=== PATIENT | female | born 1955 | race Caucasian/White ===

== ENCOUNTER 2017-06-04 04:02 | Day surgery (SDC) | payer OTHER ==
[~2017-06-04 04:02] MED LIST: ALBU90OI61 INH; FLUSAL2505 INH; TRAM50 PO
== END 2017-06-04 23:08 | disposition home or self-care (01) ==
LOC: MOI US 04:02
PROC: 0HBU3ZX Excision of Left Breast, Percutaneous Approach, Diagnostic (ICD-10-PCS; principal; 2017-06-04)
DX: C50.912 Malignant neoplasm of unspecified site of left female breast (principal)
CPT/HCPCS: 19083; 77065; 88305; 88360; A4648

== ENCOUNTER 2017-06-29 10:05 | Day surgery (SDC) | payer OTHER ==
[2017-06-28 10:38] LABS: BASOPHILS ABSOLUTE AUTO 0.02 K/mm3 (0.00-0.23); BASOPHILS PERCENT AUTO 0 % (0-2); EOSINOPHILS ABSOLUTE AUTO 0.15 K/mm3 (0.00-0.68); EOSINOPHILS PERCENT AUTO 2 % (0-6); Hematocrit 48.2 % (33.0-51.0); Hemoglobin 15.4 g/dL (11.5-16.0); IMMATURE GRAN ABSOLUTE AUTO 0.01 K/mm3 (0.00-0.10); IMMATURE GRAN PERCENT AUTO 0 % (0-1); LYMPHOCYTES ABSOLUTE AUTO 2.62 K/mm3 (0.84-5.20); LYMPHOCYTES PERCENT AUTO 43 % (21-46); MONOCYTES ABSOLUTE AUTO 0.38 K/mm3 (0.16-1.47); MONOCYTES PERCENT AUTO 6 % (4-13); Mean Corpuscular HGB 28.2 pg (26.0-34.0); Mean Corpuscular Volume 88 fL (80-100); Mean Platelet Volume 10.8 fL (9.1-12.4); NEUTROPHILS ABSOLUTE AUTO 2.95 K/mm3 (1.96-9.15); NEUTROPHILS PERCENT AUTO 48 % (41-73); Platelet Count 228 K/mm3 (150-400); RDW Coefficient Variation 14.4 % (11.7-14.2); RDW Standard Deviation 46.5 fL (35.1-46.3); Red Blood Cell Count 5.47 M/mm3 (3.80-5.20); White Blood Cell Count 6.13 K/mm3 (4.00-11.30)
[2017-06-28 11:14] LABS: Anion Gap 8 mmol/L (6-16); Blood Urea Nitrogen 9 mg/dL (8-24); Bun/Creatinine Ratio 15.6 (12.0-20.0); CO2, Blood 26 mmol/L (21-32); Calcium, Blood 9.2 mg/dL (8.5-10.1); Chloride, Blood 106 mmol/L (98-108); Creatinine, Blood 0.58 mg/dL (0.40-1.00); Glomerular Filtration Rate >60 (60-); Glucose, Blood 121 mg/dL (70-99); Potassium, Blood 4.2 mmol/L (3.5-5.5); Sodium, Blood 140 mmol/L (136-145)
[~2017-06-29] VITALS: Ht 162.6 cm; Wt 100.2 kg
[~2017-06-29 10:05] MED LIST changes: +Advil200 M1 PO; +DULERA 200 MCG/13 GM INH
== END 2017-06-29 14:13 | disposition home or self-care (01) ==
LOC: ORSCMMR 10:05 → ORD 12:15 → ORSCMMR 12:15
PROVIDERS: Surgery
PROC: 02HV33Z Insertion of Infusion Device into Superior Vena Cava, Percutaneous Approach (ICD-10-PCS; principal; 2017-06-29 12:15)
PROC: B5181ZA Fluoroscopy of Superior Vena Cava using Low Osmolar Contrast, Guidance (ICD-10-PCS; principal; 2017-06-29 12:15)
DX: C50.412 Malignant neoplasm of upper-outer quadrant of left female breast (principal); E11.9 Type 2 diabetes mellitus without complications; J45.909 Unspecified asthma, uncomplicated; F17.210 Nicotine dependence, cigarettes, uncomplicated; Z79.899 Other long term (current) drug therapy; E66.01 Morbid (severe) obesity due to excess calories; Z68.37 Body mass index [BMI] 37.0-37.9, adult
CPT/HCPCS: 36415; 77001; 80048; 82947; 85025; 93005; 93010; C1769; C1788; J0690; J1642; J2250; J3010; J7120

== ENCOUNTER 2018-05-30 16:17 | Inpatient (IN) | payer OTHER ==
[~2018-05-30] VITALS: Ht 162.6 cm; Wt 101.6 kg
[~2018-05-30 16:17] MED LIST changes: +HYDR1TAB94 PO; +OXYC5 PO
[2018-05-30 17:23] LABS: BASOPHILS PERCENT AUTO 0 % (0-2); EOSINOPHILS PERCENT AUTO 0 % (0-6); Hematocrit 37.9 % (33.0-51.0); Hemoglobin 12.3 g/dL (11.5-16.0); IMMATURE GRAN ABSOLUTE AUTO 0.01 K/mm3 (0.00-0.10); IMMATURE GRAN PERCENT AUTO 0 % (0-1); LYMPHOCYTES PERCENT AUTO 19 % (21-46); MONOCYTES ABSOLUTE AUTO 0.21 K/mm3 (0.16-1.47); MONOCYTES PERCENT AUTO 7 % (4-13); Mean Corpuscular HGB 32.4 pg (26.0-34.0); Mean Corpuscular HGB Conc 32.5 g/dL (31.5-36.5); Mean Corpuscular Volume 100 fL (80-100); Mean Platelet Volume 10.1 fL (9.1-12.4); NEUTROPHILS ABSOLUTE AUTO 2.28 K/mm3 (1.96-9.15); NEUTROPHILS PERCENT AUTO 74 % (41-73); Platelet Count 148 K/mm3 (150-400); RDW Coefficient Variation 19.3 % (11.7-14.2); RDW Standard Deviation 68.5 fL (35.1-46.3)
[2018-05-30 17:47] LABS: Alanine Aminotransfer (ALT/SGP 23 U/L (12-78); Albumin/Globulin Ratio 0.9 (0.8-1.8); Alk Phos 82 U/L (50-136); Anion Gap 9 mmol/L (6-16); Aspartate Aminotrans (AST/SGOT 13 U/L (12-37); Bilirubin, Total 0.4 mg/dL (0.1-1.0); Blood Urea Nitrogen 12 mg/dL (8-24); Bun/Creatinine Ratio 28.2 (12.0-20.0); CO2, Blood 26 mmol/L (21-32); Calcium, Blood 9.9 mg/dL (8.5-10.1); Chloride, Blood 102 mmol/L (98-108); Creatinine, Blood 0.43 mg/dL (0.40-1.00); Globulin, Blood 4.4 g/dL (2.2-4.0); Glomerular Filtration Rate >60 (60-); Glucose, Blood 224 mg/dL (70-99); Potassium, Blood 3.8 mmol/L (3.5-5.5); Sodium, Blood 137 mmol/L (136-145); Total Protein, Blood 8.4 g/dL (6.4-8.2)
[2018-05-30 20:35] LABS: Source, Urine Clean Catch
[2018-05-30 20:38] LABS: Bilirubin, Urine Neg (Neg); Blood, Urine Neg (Neg); Glucose Qualitative, Urine 3+ (Neg); Ketones, Urine 3+ (Neg); Leukocyte Esterase, Urine 1+ (Neg); Nitrite, Urine Neg (Neg); Protein, Urine 2+ (Neg); Specific Gravity, Urine 1.025 (1.003-1.022); Urobilinogen, Urine NORM (Normal)
[2018-05-30 20:44] LABS: Appearance, Urine Cloudy (Clear); Color, Urine Yellow (P-Yellow)
[2018-05-30 20:45] LABS: Squamous Epithelial Cells Mod /hpf (Few)
[2018-05-30 20:46] LABS: Bacteria Few /hpf; Mucus Mod (0-Heavy); Red Blood Cells, Urine Not Seen /hpf (0-2); White Blood Cells, Urine 0-2 /hpf (0-5)
--- NOTE | 2018-05-30 23:59 | NUR ---
PT ARRIVED TO UNIT AT APPROX [address] MIDDLETON CONSULTED. NG TUBE CLAMPED UPON ARRIVAL. PT REQUESTING A WHEELCHAIR TO GO OUTSIDE AND SMOKE. PT APPEARS ANXIOUS AND REPORTS FEELING FRUSTURATED. EDUCATED ON THE EFFECTS OF SMOKING WITH SBO AND DX OF ASTHMA. PT UNRECEPTIVE AND NON-COMPLIENT. REQUESTING ALBUTEROL TX BEFORE GOING OUTSIDE TO SMOKE. RT NOTIFIED. PT REPORTS FEELING INPATIENT AND "NEEDS TO GO NOW". LEFT BEFORE RECIEVING TX. PT GIVEN UNIT PHONE NUMBER AND INSTRUCTED TO CALL IF NEEDED.
--- NOTE | 2018-05-31 | NUR ---
PATIENT TOOK HERSELF OUTSIDE IN WHEELCHAIR.
[2018-05-31 04:35] LABS: Hematocrit 33.6 % (33.0-51.0); Hemoglobin 10.6 g/dL (11.5-16.0); Mean Corpuscular HGB 32.5 pg (26.0-34.0); Mean Corpuscular HGB Conc 31.5 g/dL (31.5-36.5); Mean Platelet Volume 9.4 fL (9.1-12.4); NRBC ABSOLUTE 0.02 K/mm3 (0.00-0.02); NRBC Auto 0.6 /100 WBC (0.0-0.2); Platelet Count 128 K/mm3 (150-400); RDW Coefficient Variation 19.6 % (11.7-14.2); RDW Standard Deviation 73.3 fL (35.1-46.3); Red Blood Cell Count 3.26 M/mm3 (3.80-5.20); White Blood Cell Count 3.48 K/mm3 (4.00-11.30)
[2018-05-31 04:42] LABS: Mean Corpuscular Volume 103 fL (80-100)
[2018-05-31 05:06] LABS: Anion Gap 9 mmol/L (6-16); Blood Urea Nitrogen 14 mg/dL (8-24); CO2, Blood 26 mmol/L (21-32); Calcium, Blood 8.7 mg/dL (8.5-10.1); Chloride, Blood 107 mmol/L (98-108); Creatinine, Blood 0.52 mg/dL (0.40-1.00); Glomerular Filtration Rate >60 (60-); Glucose, Blood 176 mg/dL (70-99); Potassium, Blood 3.5 mmol/L (3.5-5.5); Sodium, Blood 142 mmol/L (136-145)
--- NOTE | 2018-05-31 10:10 | NUR ---
SHIFT ASSESSMENT SHIFT ASSESSMENT UNDONE CHARTED ON INCORRECT PATIENT
--- NOTE | 2018-05-31 11:15 | NUR ---
smoke patient requests iv and ng be unhooked so she can go out to smoke . reminded patient that Dr Wasserman had conversation with her this morning regarding she should hnot be smoking. patient tells me she hasnt smoked in over 24 hours and her mother is going to wheel her out to smoke via wheelchair. patient unhooked as per her request
--- NOTE | 2018-05-31 11:45 | NUR ---
biox biox 86% when patient returned from smoking. instructed patient in tcdb and biox increased to 91%. oxygen placed at 2 liters
--- NOTE | 2018-05-31 17:42 | NUR ---
SUMMARY PATIENT SLEEPING AFTER MEDICATED FOR HEADACHE. PAIN 2/10 AT THIS TIME. MEDICATED X1 FOR NAUSEA. PATIENT STATES SHE DOES FEEL SOME "RUMBLINGS IN ABDOMEN.
--- NOTE | 2018-05-31 18:07 | NUR ---
out to smoke patient requests IV and NG be unhooked so she can go outside to smoke. patient reminded of physician instructions that she not smoke. patient wheeled self out of room in wheelchair stating she has done well and only smoked once today
--- NOTE | 2018-05-31 18:31 | NUR ---
returned to room
--- NOTE | 2018-06-01 06:43 | NUR ---
SUMMARY PT CONT WITH NO FLATUS. NG CONT WITH OUTPUT. HOWEVER, STARTED PT ON REGLAN DURING NIGHT WITH PT VERB IMPROVEMENT IN NAUSEA NAD FEELING IF INTESTINES MAY BECOME MORE ACTIVE. VERB DILAUDID EFFECTIVE FOR PAIN.
--- NOTE | 2018-06-01 07:37 | NUR ---
reglan 5 mg ivp given pt sitting up on edge of the bed pt stated at this time pain is ok had pain meds earlier but without she has abd cramping ngt to low int sx with green drainage pt having small amts manolo ice chips still having nausea bt's hypo x4 no flatus
[2018-06-01 10:33] LABS: BASOPHILS PERCENT AUTO 0 % (0-2); EOSINOPHILS PERCENT AUTO 0 % (0-6); Hematocrit 30.1 % (33.0-51.0); Hemoglobin 9.5 g/dL (11.5-16.0); IMMATURE GRAN ABSOLUTE AUTO 0.01 K/mm3 (0.00-0.10); IMMATURE GRAN PERCENT AUTO 0 % (0-1); LYMPHOCYTES ABSOLUTE AUTO 0.75 K/mm3 (0.84-5.20); LYMPHOCYTES PERCENT AUTO 24 % (21-46); MONOCYTES ABSOLUTE AUTO 0.37 K/mm3 (0.16-1.47); MONOCYTES PERCENT AUTO 12 % (4-13); Mean Corpuscular HGB 32.8 pg (26.0-34.0); Mean Corpuscular HGB Conc 31.6 g/dL (31.5-36.5); Mean Corpuscular Volume 104 fL (80-100); Mean Platelet Volume 9.7 fL (9.1-12.4); NEUTROPHILS ABSOLUTE AUTO 2.03 K/mm3 (1.96-9.15); NEUTROPHILS PERCENT AUTO 64 % (41-73); Platelet Count 93 K/mm3 (150-400); RDW Coefficient Variation 19.5 % (11.7-14.2); White Blood Cell Count 3.16 K/mm3 (4.00-11.30)
[2018-06-01 10:40] LABS: Anion Gap 5 mmol/L (6-16); Blood Urea Nitrogen 10 mg/dL (8-24); CO2, Blood 33 mmol/L (21-32); Calcium, Blood 8.2 mg/dL (8.5-10.1); Chloride, Blood 108 mmol/L (98-108); Creatinine, Blood 0.42 mg/dL (0.40-1.00); Glomerular Filtration Rate >60 (60-); Glucose, Blood 153 mg/dL (70-99); Potassium, Blood 3.3 mmol/L (3.5-5.5); Sodium, Blood 146 mmol/L (136-145)
--- NOTE | 2018-06-01 12:06 | NUR ---
NEW NGT CANNISTER PLACED 500 ML DRAINAGE PT HAD 2 CUPS OF ICE CHIPS PT WANTING TO BE UNHOOKED TO GO OUT AND SMOKE WITH HER
--- NOTE | 2018-06-01 14:02 | NUR ---
PT VISITING WITH LABS BACK IV K LOW K RIDER INFUSING
[2018-06-02 04:29] LABS: Anion Gap 6 mmol/L (6-16); Blood Urea Nitrogen 12 mg/dL (8-24); Bun/Creatinine Ratio 27.7 (12.0-20.0); CO2, Blood 33 mmol/L (21-32); Calcium, Blood 8.3 mg/dL (8.5-10.1); Chloride, Blood 108 mmol/L (98-108); Creatinine, Blood 0.43 mg/dL (0.40-1.00); Glomerular Filtration Rate >60 (60-); Glucose, Blood 158 mg/dL (70-99); Potassium, Blood 3.5 mmol/L (3.5-5.5); Sodium, Blood 147 mmol/L (136-145)
--- NOTE | 2018-06-02 06:26 | NUR ---
SUMMARRY PT CONT WITH NG TO DRAIN. TAKING FEEW ICE CHIPS. NO FLATUS YET. URINE DK. WILL ASK DAY RN TO FOLLOW UP REGARDING IV FLUIDS PT SLIGHTLY HIGH ON AM SODIUM LEVEL.ALSO,CO2 LEVEL SLIGHTLY ABOVE RANGE.PT WITH HX ASTHMA AND COPD BUT DENIES HOME O2 USE AT THIS TIME.I TURNED O2 DOWN TO 1 L N/C WILL MONITOR.
--- NOTE | 2018-06-02 07:20 | NUR ---
PT WAKES TO VERBAL STIMULI PT HAS INCREASED BT'S X3 NGT TO LOW SX STILL HAVING NAUSEA INT TAKING ICE CHIPS NO FLATUS STILL HAVING ABD CRAMPS
--- NOTE | 2018-06-02 11:45 | NUR ---
pt had open spot to l pannus with redness asked pt if she gets yeast infections stated she does will call for nystatin powder
--- NOTE | 2018-06-02 16:05 | NUR ---
PT STATED EARLIER SHE FELT LIKE SHE HAD SOME PRESSURE BUT NO FLATUS AMB FOR 30 MIN IN HALLWAY WITH HER SPOUSE
--- NOTE | 2018-06-02 17:11 | NUR ---
PT PASSED FLATUS X 2 PT WANTING TO GO OUTSIDE TO SMOKE
--- NOTE | 2018-06-02 19:00 | NUR ---
pt had another flatus called dr jo pt asked if she could have cl diet will clamp ngt for 4 hr and be npo if pt has nausea hook to sx then back to sx for hr and allow ice chips and sips if pt armando t/o the night plan for poss removal of ngt
[2018-06-03 04:15] LABS: BASOPHILS PERCENT AUTO 0 % (0-2); EOSINOPHILS PERCENT AUTO 0 % (0-6); Hemoglobin 8.7 g/dL (11.5-16.0); IMMATURE GRAN ABSOLUTE AUTO 0.02 K/mm3 (0.00-0.10); IMMATURE GRAN PERCENT AUTO 1 % (0-1); LYMPHOCYTES PERCENT AUTO 28 % (21-46); MONOCYTES ABSOLUTE AUTO 0.27 K/mm3 (0.16-1.47); MONOCYTES PERCENT AUTO 9 % (4-13); Mean Corpuscular HGB 33.5 pg (26.0-34.0); Mean Corpuscular HGB Conc 31.1 g/dL (31.5-36.5); Mean Platelet Volume 10.1 fL (9.1-12.4); NEUTROPHILS PERCENT AUTO 62 % (41-73); Platelet Count 69 K/mm3 (150-400); RDW Coefficient Variation 19.3 % (11.7-14.2); RDW Standard Deviation 75.7 fL (35.1-46.3); White Blood Cell Count 2.89 K/mm3 (4.00-11.30)
[2018-06-03 04:23] LABS: Mean Corpuscular Volume 108 fL (80-100)
[2018-06-03 04:38] LABS: Alanine Aminotransfer (ALT/SGP 67 U/L (12-78); Alk Phos 61 U/L (50-136); Anion Gap 6 mmol/L (6-16); Aspartate Aminotrans (AST/SGOT 48 U/L (12-37); Bilirubin, Total 0.4 mg/dL (0.1-1.0); Blood Urea Nitrogen 17 mg/dL (8-24); Bun/Creatinine Ratio 36.9 (12.0-20.0); CO2, Blood 35 mmol/L (21-32); Calcium, Blood 8.2 mg/dL (8.5-10.1); Chloride, Blood 110 mmol/L (98-108); Creatinine, Blood 0.46 mg/dL (0.40-1.00); Globulin, Blood 3.1 g/dL (2.2-4.0); Glomerular Filtration Rate >60 (60-); Glucose, Blood 134 mg/dL (70-99); Magnesium, Blood 2.4 mg/dL (1.6-2.4); Potassium, Blood 2.9 mmol/L (3.5-5.5); Sodium, Blood 151 mmol/L (136-145); Total Protein, Blood 6.1 g/dL (6.4-8.2)
--- NOTE | 2018-06-03 06:40 | NUR ---
PT VSS T/O NIGHT. PT MED FOR PAIN X2 W/REP RELIEF. PT DENIED NAUSEA, IS PASSING SMALL AMT FLATUS. ABD SOFT, BT PRESENT. NGT ALT CLAMPED FOR 4 HOURS W/1 HOUR OF LIS. TUBE DRAINED APPX 400ML BROWN FLUID. PT NPO X FEW ICE CHIPS, IVF CONT PER ORDERS. PT AMB INEP OUTSIDE, PEGGY WELL. WILL CONT TO MONITOR UNTIL REP GIVEN TO ONCOMING RN.
--- NOTE | 2018-06-03 12:05 | NUR ---
NG TUBE REMOVED AT THIS TIME PER DR JUAREZ VERBAL ORDER. PT STARTED ON SIPS OF CLEAR LIQUIDS.
--- NOTE | 2018-06-03 18:18 | NUR ---
SHIFT SUMMARY PT HAS DONE WELL THIS SHIFT. NG TUBE REMOVED AND PATIENT STARTED ON CLEAR LIQUIDS-NO NAUSEA. UP AND AMBULATING IN HALLWAY AND OUTSIDE TO SMOKE MULTIPLE TIMES T/O SHIFT.
--- NOTE | 2018-06-04 04:42 | NUR ---
SHIFT SUMMARY PT A&O X4 T/O SHIFT. NO ACUTE CHANGES. ABD SOFT; BT X4; PT PASSING STOOL. PT DENIES NAUSEA, PAIN, CP AND SOB T/O SHIFT. LS SLIGHTLY DIM IN BILAT BASES; RA. PT OFF UNIT X1. INDEPENDENT IN ROOM. CALL LIGHT IN REACH; PT DEMONSTRATES USE. WCTM UNTIL REPORT TO DAY SHIFT RN.
--- NOTE | 2018-06-04 14:00 | NUR ---
DISCHARGE PT DISCHARGED HOME FROM UNIT AT APROX 1345. PT GIVEN WRITTEN AND VERBAL DISCHARGE INSTRUCTIONS AND VERBALIZED UNDERSTANDING OF THESE INSTRUCTIONS. IV REMOVED. WHEELCHAIR TO CAR.
== END 2018-06-04 13:30 | disposition home or self-care (01) | DRG 394 ==
LOC: ER 16:17 → SURS 20:21
PROVIDERS: Emergency Medicine; Internal Medicine; Nurse Practitioner Acute Care; Surgery; ADMIT Internal Medicine
PROC: 0D9670Z Drainage of Stomach with Drainage Device, Via Natural or Artificial Opening (ICD-10-PCS; principal; 2018-05-30)
DX: K43.6 Other and unspecified ventral hernia with obstruction, without gangrene (principal); N39.0 Urinary tract infection, site not specified; C50.912 Malignant neoplasm of unspecified site of left female breast; E11.9 Type 2 diabetes mellitus without complications; J44.9 Chronic obstructive pulmonary disease, unspecified; F17.200 Nicotine dependence, unspecified, uncomplicated; Z88.8 Allergy status to other drugs, medicaments and biological substances; Z92.21 Personal history of antineoplastic chemotherapy
CPT/HCPCS: 36415; 74176; 80048; 80053; 81001; 82947; 83605; 83690; 83735; 85025; 85027; 87077; 87086; 87186; 94640; 94760; 96361; 96374; 96375; 96376; 99285-25; J0696; J1170; J2405; J2765; J3010; J3480; J7030; J7120

== ENCOUNTER → 2018-12-20 | Outpatient (CLI) | payer OTHER ==
[2018-12-20 19:24] LABS: BASOPHILS ABSOLUTE AUTO 0.01 K/mm3 (0.00-0.23); BASOPHILS PERCENT AUTO 0 % (0-2); EOSINOPHILS ABSOLUTE AUTO 0.11 K/mm3 (0.00-0.68); EOSINOPHILS PERCENT AUTO 2 % (0-6); Hematocrit 46.5 % (33.0-51.0); Hemoglobin 14.6 g/dL (11.5-16.0); IMMATURE GRAN ABSOLUTE AUTO 0.02 K/mm3 (0.00-0.10); IMMATURE GRAN PERCENT AUTO 0 % (0-1); LYMPHOCYTES ABSOLUTE AUTO 1.99 K/mm3 (0.84-5.20); LYMPHOCYTES PERCENT AUTO 30 % (21-46); MONOCYTES ABSOLUTE AUTO 0.33 K/mm3 (0.16-1.47); MONOCYTES PERCENT AUTO 5 % (4-13); Mean Corpuscular HGB 29.7 pg (26.0-34.0); Mean Corpuscular HGB Conc 31.4 g/dL (31.5-36.5); Mean Corpuscular Volume 95 fL (80-100); Mean Platelet Volume 10.9 fL (9.1-12.4); NEUTROPHILS ABSOLUTE AUTO 4.15 K/mm3 (1.96-9.15); NEUTROPHILS PERCENT AUTO 63 % (41-73); Platelet Count 205 K/mm3 (150-400); RDW Coefficient Variation 14.2 % (11.7-14.2); RDW Standard Deviation 49.2 fL (35.1-46.3); Red Blood Cell Count 4.92 M/mm3 (3.80-5.20); White Blood Cell Count 6.61 K/mm3 (4.00-11.30)
[2018-12-20 19:41] LABS: Alanine Aminotransfer (ALT/SGP 26 U/L (12-78); Albumin, Blood 3.8 g/dL (3.4-5.0); Albumin/Globulin Ratio 0.9 (0.8-1.8); Alk Phos 93 U/L (50-136); Anion Gap 4 mmol/L (6-16); Aspartate Aminotrans (AST/SGOT 16 U/L (12-37); Bilirubin, Total 0.2 mg/dL (0.1-1.0); Blood Urea Nitrogen 10 mg/dL (8-24); CHOL/HDL RATIO 5.3; CO2, Blood 28 mmol/L (21-32); Calcium, Blood 9.4 mg/dL (8.5-10.1); Chloride, Blood 104 mmol/L (98-108); Cholesterol 219 mg/dL (50-200); Globulin, Blood 4.4 g/dL (2.2-4.0); Glucose, Blood 123 mg/dL (70-99); HDL Cholesterol 41 mg/dL (>39); LDL/HDL RATIO 3.6; Low Density Lipoprotein Chol 146 mg/dL (0-110); Potassium, Blood 4.3 mmol/L (3.5-5.5); Sodium, Blood 136 mmol/L (136-145); Total Protein, Blood 8.2 g/dL (6.4-8.2); Triglycerides 160 mg/dL (30-160); Very Low Density Lipoprot Chol 32 mg/dL (6-32)
[2018-12-20 19:45] LABS: Creatinine, Blood 0.53 mg/dL (0.40-1.00); Glomerular Filtration Rate >60 (60-)
[2018-12-20 19:55] LABS: Microalb/Creat Ratio UR, Rand Unable to Calculate mg/g (0.000-30.000); Microalbumin, Random Urine <5.000 mg/L (0.000-20.000)
== END ==
LOC: LAB 10:25 → LAB SHORT 10:25 → EDSTATUS 12-21 12:40 → LAB FUT 12-21 12:40
PROVIDERS: Family Medicine
DX: E11.9 Type 2 diabetes mellitus without complications (principal)
CPT/HCPCS: 80053; 80061; 82043; 82570; 83036; 84443; 85025

== ENCOUNTER 2020-03-12 23:13 | Inpatient (IN) | payer OTHER ==
[~2020-03-12] VITALS: Ht 162.6 cm; Wt 93.9 kg
[2020-03-12] MEDS ORDERED: MIRALAX17 GM (23:20)
[2020-03-12] MEDS ORDERED: BISA10S PR (23:20)
[2020-03-12 23:43] LABS: BASOPHILS ABSOLUTE AUTO 0.02 K/mm3 (0.00-0.23); BASOPHILS PERCENT AUTO 0 % (0-2); EOSINOPHILS ABSOLUTE AUTO 0.02 K/mm3 (0.00-0.68); EOSINOPHILS PERCENT AUTO 0 % (0-6); Hematocrit 45.9 % (33.0-51.0); Hemoglobin 14.8 g/dL (11.5-16.0); IMMATURE GRAN ABSOLUTE AUTO 0.06 K/mm3 (0.00-0.10); IMMATURE GRAN PERCENT AUTO 1 % (0-1); LYMPHOCYTES ABSOLUTE AUTO 1.87 K/mm3 (0.84-5.20); LYMPHOCYTES PERCENT AUTO 20 % (21-46); MONOCYTES ABSOLUTE AUTO 0.48 K/mm3 (0.16-1.47); MONOCYTES PERCENT AUTO 5 % (4-13); Mean Corpuscular HGB 29.2 pg (26.0-34.0); Mean Corpuscular HGB Conc 32.2 g/dL (31.5-36.5); Mean Corpuscular Volume 91 fL (80-100); Mean Platelet Volume 9.5 fL (9.1-12.4); NEUTROPHILS PERCENT AUTO 74 % (41-73); Platelet Count 252 K/mm3 (150-400); RDW Coefficient Variation 13.2 % (11.7-14.2); RDW Standard Deviation 44.3 fL (35.1-46.3); Red Blood Cell Count 5.07 M/mm3 (3.80-5.20); White Blood Cell Count 9.55 K/mm3 (4.00-11.30)
[2020-03-13 00:01] LABS: Alanine Aminotransfer (ALT/SGP 19 U/L (12-78); Albumin, Blood 3.5 g/dL (3.4-5.0); Albumin/Globulin Ratio 0.9 (0.8-1.8); Alk Phos 84 U/L (50-136); Anion Gap 9 mmol/L (6-16); Aspartate Aminotrans (AST/SGOT 14 U/L (12-37); Bilirubin, Total 0.4 mg/dL (0.1-1.0); Blood Urea Nitrogen 12 mg/dL (8-24); Bun/Creatinine Ratio 20.7 (12.0-20.0); CO2, Blood 26 mmol/L (21-32); Calcium, Blood 8.8 mg/dL (8.5-10.1); Chloride, Blood 99 mmol/L (98-108); Creatinine, Blood 0.58 mg/dL (0.40-1.00); Globulin, Blood 4.1 g/dL (2.2-4.0); Glomerular Filtration Rate >60 (60-); Glucose, Blood 169 mg/dL (70-99); Potassium, Blood 3.8 mmol/L (3.5-5.5); Sodium, Blood 134 mmol/L (136-145); Total Protein, Blood 7.6 g/dL (6.4-8.2)
[2020-03-13 01:43] LABS: Source, Urine Clean Catch
[2020-03-13 01:46] LABS: Bilirubin, Urine Neg (Neg); Blood, Urine Neg (Neg); Glucose Qualitative, Urine Neg (Neg); Ketones, Urine 3+ (Neg); Leukocyte Esterase, Urine Neg (Neg); Nitrite, Urine Neg (Neg); Protein, Urine 1+ (Neg); Specific Gravity, Urine 1.015 (1.003-1.022); Urobilinogen, Urine 1+ (Normal)
[2020-03-13 01:51] LABS: Appearance, Urine Clear (Clear); Color, Urine Yellow (P-Yellow)
--- NOTE | 2020-03-13 05:13 | NUR ---
PATIENT ARRIVED AT 0235 FROM THE ER WITH O2 @2 L NC, WITH PRONGS IN MOUTH DUE TO NG TUBE IN PLACE. PATIENT ABLE TO AMBULATE AND TRANSFER SELF TO BED THEN TO RECLINER WITH SBA. SHE HAS MILD-MODERATE PAIN IN HER ABDOMEN IN AN AREA THAT SHE STATES IS WHERE HER LARGE HERNIA (PRIOR OR REPAIR) IS LOCATED RT LOWER QUADRANT. 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 DENIES NAUSEA SINCE THE NG WAS PLACED AND DECOMRESSED IN THE ER. NG IS NOW TO LIS WITH BROWN FLUID DRAINING. ABSENT BOWEL TONES. LAST STOOL WAS ON 03/10/20 AND WAS STATED TO BE SMALL. PATIENT WAS INFORMED THAT THE CAMPUS IS A NON SMOKING CAMPUS AND SHE STATED THAT SHE MAY HAVE TO WALK TO THE CORNER ON THE MAIN STREET TO SMOKE. PATIENT IS NOW IN BED RESTING QUIETLY. CALL LIGHT IN REACH.
--- NOTE | 2020-03-13 07:37 | NUR ---
ASSESSMENT PT SITTING UP IN CHAIR, C/O ABD PAIN, MAINLY LOCATED ON L SIDE, MEDICATED WITH DILAUDID PER EMAR. PT O2 SAT 94% ON 2L NC, DOES NOT WEAR O2 AT BASELINE, LUNGS DIM IN BASES. NG TUBE PATENT, SMALL AMT BROWN LIQUID PRESENT IN CANISTER. PT IS CONTINUING TO REFUSE TELEMETRY, WILL NOTIFY
[2020-03-13 08:49] LABS: BASOPHILS ABSOLUTE AUTO 0.01 K/mm3 (0.00-0.23); BASOPHILS PERCENT AUTO 0 % (0-2); EOSINOPHILS ABSOLUTE AUTO 0.07 K/mm3 (0.00-0.68); EOSINOPHILS PERCENT AUTO 1 % (0-6); Hemoglobin 13.2 g/dL (11.5-16.0); IMMATURE GRAN ABSOLUTE AUTO 0.02 K/mm3 (0.00-0.10); IMMATURE GRAN PERCENT AUTO 0 % (0-1); LYMPHOCYTES ABSOLUTE AUTO 2.04 K/mm3 (0.84-5.20); LYMPHOCYTES PERCENT AUTO 34 % (21-46); MONOCYTES ABSOLUTE AUTO 0.42 K/mm3 (0.16-1.47); MONOCYTES PERCENT AUTO 7 % (4-13); Mean Corpuscular HGB 29.9 pg (26.0-34.0); Mean Corpuscular HGB Conc 32.2 g/dL (31.5-36.5); Mean Corpuscular Volume 93 fL (80-100); Mean Platelet Volume 9.6 fL (9.1-12.4); NEUTROPHILS PERCENT AUTO 58 % (41-73); Platelet Count 190 K/mm3 (150-400); RDW Coefficient Variation 13.2 % (11.7-14.2); RDW Standard Deviation 45.1 fL (35.1-46.3); Red Blood Cell Count 4.42 M/mm3 (3.80-5.20); White Blood Cell Count 6.06 K/mm3 (4.00-11.30)
[2020-03-13 09:22] LABS: Alanine Aminotransfer (ALT/SGP 36 U/L (12-78); Albumin/Globulin Ratio 0.9 (0.8-1.8); Alk Phos 83 U/L (50-136); Anion Gap 6 mmol/L (6-16); Aspartate Aminotrans (AST/SGOT 37 U/L (12-37); Bilirubin, Total 0.4 mg/dL (0.1-1.0); Blood Urea Nitrogen 12 mg/dL (8-24); Bun/Creatinine Ratio 20.9 (12.0-20.0); CO2, Blood 27 mmol/L (21-32); Chloride, Blood 103 mmol/L (98-108); Creatinine, Blood 0.57 mg/dL (0.40-1.00); Globulin, Blood 3.2 g/dL (2.2-4.0); Glomerular Filtration Rate >60 (60-); Glucose, Blood 105 mg/dL (70-99); Potassium, Blood 3.5 mmol/L (3.5-5.5); Sodium, Blood 136 mmol/L (136-145); Total Protein, Blood 6.2 g/dL (6.4-8.2)
--- NOTE | 2020-03-13 21:55 | NUR ---
PATIENT IS CURRENTLY UP IN HER RECLINER. COMPLAINS OF PAIN, DILADID GIVEN WITH GOOD RELIEF. NG TUBE TO LIS WITH BROWN FLUID IN TUBING. DENIES NAUSEA. PATIENT HAS HAD SEVERAL BMS TODAY AND ON THIS SHIFT. STATES SOME RELIEF TO ABDOMINAL DISCOMFORT. CALL LIGHT IN REACH.
--- NOTE | 2020-03-14 04:41 | NUR ---
PATIENT SLEPT ONCE SHE WAS IN BED AT APPROX 2100. SHE WOKE TO THE NEED TO VOID AND HAVE A LARGE BM. NG IS DRAINING A GREENISH BROWN FLUID. NG OUTPUT FOR THIS SHIFT WAS 200CC. ABDOMEN IS STILL FIRM IN THE AREA OF THE HERNIA. NO ACUTE CHANGES, CALL LIGHT IN REACH.
--- NOTE | 2020-03-14 07:54 | NUR ---
ASSESSMENT PT UP AMBULATING IN HALLWAYS, REPORTS 2 LARGE BM. NG TUBE CLAMPED AT THIS TIME FOR APROX 1HR DUE TO AMBULATING, PT DENIES ANY N/V. DENIES PAIN AT THIS TIME OTHER THAN SOME "CRAMPING". LUNG SOUNDS CLEAR T/O IMPROVED SINCE YESTERDAY, O2 SAT 94% ON RA. REDNESS IN PANNUS IMPROVED, PT REPORTS ITCHING IN AREA DECREASED WELL. PT UP TO SHOWER AT THIS TIME.
[2020-03-14] MEDS ORDERED: MICO100S TOP (12:36)
--- NOTE | 2020-03-14 15:27 | NUR ---
DISCHARGE PT DISCHARGED HOME FROM UNIT APROX 1500. PT GIVEN WRITTEN AND VERBAL DISCHARGE INSTRUCTIONS AND VERBALIZED UNDERSTANDING. IV REMOVED. DECLINED WHEELCHAIR TO CAR.
== END 2020-03-14 15:32 | disposition home or self-care (01) | DRG 394 ==
LOC: ER 23:13 → SURS 03-13 01:19
PROVIDERS: Emergency Medicine; ADMIT Internal Medicine
DX: K43.6 Other and unspecified ventral hernia with obstruction, without gangrene (principal); E87.1 Hypo-osmolality and hyponatremia; E11.9 Type 2 diabetes mellitus without complications; Z85.3 Personal history of malignant neoplasm of breast; Z92.21 Personal history of antineoplastic chemotherapy; F17.210 Nicotine dependence, cigarettes, uncomplicated; J44.9 Chronic obstructive pulmonary disease, unspecified
CPT/HCPCS: 36415; 74176; 80053; 83036; 83605; 83690; 85025; 93005; 93010; 94640; 94760; 96361; 96374; 96375; 99285-25; A9270; J1170; J1650; J2270; J2405; J7030

== ENCOUNTER 2021-12-12 16:13 | Emergency (ER) | payer OTHER ==
[~2021-12-12] VITALS: Ht 162.6 cm; Wt 92.5 kg
[~2021-12-12 16:13] MED LIST changes: +BISA10S PR; +MICO100S TOP; +MIRALAX17 GM
[2021-12-12 17:05] LABS: BASOPHILS ABSOLUTE AUTO 0.02 K/mm3 (0.00-0.23); BASOPHILS PERCENT AUTO 0 % (0-2); EOSINOPHILS ABSOLUTE AUTO 0.15 K/mm3 (0.00-0.68); EOSINOPHILS PERCENT AUTO 2 % (0-6); Hematocrit 42.8 % (33.0-51.0); Hemoglobin 13.8 g/dL (11.5-16.0); IMMATURE GRAN ABSOLUTE AUTO 0.03 K/mm3 (0.00-0.10); IMMATURE GRAN PERCENT AUTO 1 % (0-1); LYMPHOCYTES ABSOLUTE AUTO 1.47 K/mm3 (0.84-5.20); LYMPHOCYTES PERCENT AUTO 22 % (21-46); MONOCYTES ABSOLUTE AUTO 0.47 K/mm3 (0.16-1.47); MONOCYTES PERCENT AUTO 7 % (4-13); Mean Corpuscular HGB 27.8 pg (26.0-34.0); Mean Corpuscular HGB Conc 32.2 g/dL (31.5-36.5); Mean Corpuscular Volume 86 fL (80-100); Mean Platelet Volume 9.8 fL (9.1-12.4); NEUTROPHILS ABSOLUTE AUTO 4.41 K/mm3 (1.96-9.15); NEUTROPHILS PERCENT AUTO 67 % (41-73); Platelet Count 305 K/mm3 (150-400); RDW Coefficient Variation 14.9 % (11.7-14.2); Red Blood Cell Count 4.97 M/mm3 (3.80-5.20); White Blood Cell Count 6.55 K/mm3 (4.00-11.30)
[2021-12-12 17:31] LABS: Albumin/Globulin Ratio 0.7 (0.8-1.8); Bilirubin, Total 0.2 mg/dL (0.1-1.0); Bun/Creatinine Ratio 22.3 (12.0-20.0); Calcium, Blood 9.7 mg/dL (8.5-10.1); Creatinine, Blood 0.54 mg/dL (0.40-1.00); Globulin, Blood 4.6 g/dL (2.2-4.0); Potassium, Blood 3.7 mmol/L (3.5-5.5); Total Protein, Blood 7.6 g/dL (6.4-8.2)
[2021-12-12] MEDS ORDERED: Bentyl20 MG PO (20:31)
== END 2021-12-12 21:08 | disposition home or self-care (01) ==
LOC: ER 16:13
PROVIDERS: Physician Assistant
DX: R14.0 Abdominal distension (gaseous) (principal); R10.84 Generalized abdominal pain; Z79.899 Other long term (current) drug therapy; Z88.6 Allergy status to analgesic agent
CPT/HCPCS: 36415; 80053; 83690; 85025; 99284; A9270